=== PATIENT | male | born 1965 | race African-American/Black ===

== ENCOUNTER 2019-05-02 09:54 | Outpatient (CLI) | payer OTHER ==
--- NOTE | 2019-05-02 10:22 | RAD ---
XR Lumbar Spine 2 Or 3 View HISTORY: Disability exam. Low back pain FINDINGS: No fracture, subluxation or bony destruction is seen. There are vascular calcifications and a left hi p arthroplasty.
--- NOTE | 2019-05-02 10:24 | RAD ---
XR Hip Rt 2-3 View HISTORY: Disability exam, right hip pain FINDINGS: No fracture or dislocation is identified. No significant arthritic changes are seen.
--- NOTE | 2019-05-02 10:25 | RAD ---
XR Shoulder Lt 2 View HISTORY: Disability exam. Left shoulder pain FINDINGS: No fracture or dislocation is identified. No significant arthritic changes are seen.
== END 2019-05-02 09:55 | disposition home or self-care (01) ==
LOC: BICRAD 09:54
PROVIDERS: ATTEND Internal Medicine
DX: Z02.71 Encounter for disability determination (principal)
CPT/HCPCS: 72100